=== PATIENT | female | born 1950 | race Caucasian/White ===

== ENCOUNTER 2019-01-02 11:30 | Emergency (ER) | payer MEDICARE ==
[~2019-01-02] VITALS: Ht 167.6 cm; Wt 73.0 kg
[~2019-01-02 11:30] MED LIST: ALPRAZOLAM0.25 MG PO; ASPIRIN LOW DOS81 M1 PO; ATENOLOL25 MG PO; BENEFIB10 PO; CARVEDILOL12.5 MG PO; CIPRO500 MG PO; CLARITHROMYC500 MG PO; COUMADIN5 MG PO; FIORICET PO; FLEXERIL10 MG PO; FLONASE NASAL50 MCG PO; LIPITOR80 MG PO; LORTAB 7.5 PO; LORTAB5 PO; MECLIZINE12.5 M1 PO; MECLIZINE12.5 MG PO; MEDDOSEPAK PO; MOBIC7.5 MG PO; NAPROSYN500 MG PO; NITRO-DUR0.2 MG/HR TD; PANTOPRAZOLE SO20 MG PO; PAROXETINE25 MG PO; PAXIL CR25 MG PO; PAXIL40 MG PO; PRILOSEC OTC20 MG; PRILOSEC OTC20 MG OR; PROTONIX20 M1 PO; PROTONIX40 M2 PO; PROTONIX40 MG PO; SERTRALINE50 MG PO; TENORMIN25 MG PO; ULTRACET PO; VASOTEC2.5 MG PO; WARFARIN5 MG PO; WARFARIN7.5 MG PO; XANAX0.25 MG PO; ZITHROMAX Z-PAK1 TAB PO
[2019-01-02 11:59] LABS: HEMATOCRIT 35.2 % (37.0-47.0); HEMOGLOBIN 11.4 g/dl (12.0-16.0); IMMATURE GRANULOCYTES 0.3 % (0.0-5.0); MEAN CELL VOLUME 91.4 fL CALC (80.0-100.0); MEAN CORPUSCULAR HGB 29.6 pG CALC (26.0-32.0); MEAN CORPUSCULAR HGB CONC 32.4 g/L CALC (32.0-36.0); NEUT# 3.19 thou/uL (2.00-7.15); RED BLOOD COUNT 3.85 mill/uL (4.20-5.60); RED CELL DISTRI WIDTH 12.9 % (11.5-15.5)
[2019-01-02 12:13] LABS: ALBUMIN 4.3 g/dL (3.2-5.0); ALKALINE PHOSPHATASE 65 u/l (38-126); AMYLASE 49 u/l (30-110); ANION GAP 14 (6-22 (CALC)); BUN 19 mg/dL (8-23); BUN/CREATININE RATIO 21 (12-20 (CALC)); CARBON DIOXIDE 24 mmol/l (22-30); CHLORIDE 106 mmol/l (95-108); CREATININE 0.9 mg/dL (0.5-1.0); GFR > 60 ML/MIN (>=60 (CALC)); GFR FOR AFR.AMER. > 60 ML/MIN (>=60 (CALC)); LIPASE 91 u/l (23-300); POTASSIUM 4.3 mmol/l (3.5-5.1); SODIUM 140 mmol/l (137-146); TOTAL PROTEIN 6.8 g/dL (6.3-8.2)
[2019-01-02 12:15] LABS: ACT PARTIAL THROMBO TIME 28.4 SECONDS (20.0-32.5); PROTHROMBIN TIME 10.6 SECONDS (9.0-12.5)
[2019-01-02 12:16] LABS: BILIRUBIN, TOTAL 0.6 mg/dL (0.0-1.4); SGOT/AST 38 u/l (9-36)
[2019-01-02 12:35] LABS: MYOGLOBIN 583 ng/mL (0 - 62)
[2019-01-02] MEDS ORDERED: ATORVASTATIN CA20 MG PO (13:49)
[2019-01-02] MEDS ORDERED: LOSARTAN POTASS50 MG PO (13:49)
[2019-01-02] MEDS ORDERED: METOPROL TAR25 MG PO (13:49)
[2019-01-02] MEDS ORDERED: CALCIUM 600 +600 MG PO (13:50)
[2019-01-02] MEDS ORDERED: MELOXICAM15 MG PO (13:50)
[2019-01-02 18:00] VITALS: BP 120/66
== END 2019-01-02 18:00 ==
LOC: ED 11:30
PROVIDERS: Family Medicine
DX: I21.9 Acute myocardial infarction, unspecified (principal); I25.2 Old myocardial infarction; I10 Essential (primary) hypertension; Z95.5 Presence of coronary angioplasty implant and graft; J44.9 Chronic obstructive pulmonary disease, unspecified
CPT/HCPCS: J1644

== ENCOUNTER 2019-07-13 16:08 | Emergency (ER) | payer MEDICARE ==
[~2019-07-13] VITALS: Ht 167.6 cm; Wt 80.0 kg
[~2019-07-13 16:08] MED LIST changes: +ATORVASTATIN CA20 MG PO; +CALCIUM 600 +600 MG PO; +LOSARTAN POTASS50 MG PO; +MELOXICAM15 MG PO; +METOPROL TAR25 MG PO
[2019-07-13] MEDS ORDERED: AMOXICILLIN875 MG PO (16:47)
[2019-07-13 17:00] VITALS: BP 141/80
== END 2019-07-13 17:00 | disposition home or self-care (01) ==
LOC: ED 16:08
PROC: 0HQGXZZ Repair Left Hand Skin, External Approach (ICD-10-PCS; principal; 2019-07-13)
DX: S61.251A Open bite of left index finger without damage to nail, initial encounter (principal); I10 Essential (primary) hypertension; J43.9 Emphysema, unspecified; W54.0XXA Bitten by dog, initial encounter; Y93.K3 Activity, grooming and shearing an animal; Y92.009 Unspecified place in unspecified non-institutional (private) residence as the place of occurrence of the external cause

== ENCOUNTER 2023-09-12 13:48 | Emergency (ER) | payer MEDICARE ==
[~2023-09-12] VITALS: Ht 165.1 cm; Wt 58.0 kg
[2023-09-12] VITALS (10 sets, daily range): BP systolic 132–195; BP diastolic 76–110
[~2023-09-12 13:48] MED LIST changes: +AMOXICILLIN875 MG PO
[2023-09-12 15:14] LABS: BASO% 0.6 % (0-3); EOS% 2.1 % (0-8); HEMOGLOBIN 12.1 g/dl (12.0-16.0); MEAN CELL VOLUME 89.2 fL CALC (80.0-100.0); MEAN CORPUSCULAR HGB 29.2 pG CALC (26.0-32.0); MEAN CORPUSCULAR HGB CONC 32.7 g/dL CAL (32.0-36.0); MONO% 7.8 % (2-13); NEUT# 2.63 thou/uL (2.00-7.15); NEUT% 55.5 % (42-76); RED BLOOD COUNT 4.15 mill/uL (4.20-5.60)
[2023-09-12] MEDS ORDERED: COREG6.25 MG PO (15:16)
[2023-09-12] MEDS ORDERED: ELAVIL25 M1 PO (15:16)
[2023-09-12] MEDS ORDERED: LISINOPRIL5 MG PO (15:17)
[2023-09-12 15:23] LABS: ALBUMIN 4.4 g/dL (3.2-5.0); ALKALINE PHOSPHATASE 60 u/l (38-126); BILIRUBIN, TOTAL 0.7 mg/dL (0.02-1.3); BUN 8 mg/dL (8-23); BUN/CREATININE RATIO 11 (12-20 (CALC)); CHLORIDE 104 mmol/l (95-108); CREATININE 0.7 mg/dL (0.5-1.0); GFR FOR AFR.AMER. > 60 ML/MIN (>=60 (CALC)); GFR OTHER RACES > 60 ML/MIN (>=60 (CALC)); SGOT/AST 32 u/l (9-36); SODIUM 143 mmol/l (137-146); TOTAL PROTEIN 7.2 g/dL (6.3-8.2)
[2023-09-12 15:26] LABS: ANION GAP 11 (6-22 (CALC)); CARBON DIOXIDE 31 mmol/l (22-30); POTASSIUM 3.4 mmol/l (3.5-5.1)
[2023-09-12 15:41] LABS: URINE BILIRUBIN - DIPSTICK Negative (NEGATIVE); URINE BLOOD DIPSTICK Negative (NEGATIVE); URINE COLOR Yellow; URINE GLUCOSE - DIPSTICK Negative (NEGATIVE); URINE KETONE Negative (NEGATIVE); URINE LEUK ESTERASE Trace (NEGATIVE); URINE NITRITE - DIPSTICK Negative (Negative); URINE PROTEIN - DIPSTICK Negative (NEG-TRACE)
[2023-09-12] MEDS ORDERED: amLODIPine BESYLATE 5 MG/TAB PO ONE (16:40)
== END 2023-09-12 19:01 | disposition home or self-care (01) ==
LOC: ED 13:48
PROVIDERS: Family Medicine
DX: R41.0 Disorientation, unspecified (principal); F03.90 Unspecified dementia, unspecified severity, without behavioral disturbance, psychotic disturbance, mood disturbance, and anxiety; I10 Essential (primary) hypertension; J43.9 Emphysema, unspecified; Z20.822 Contact with and (suspected) exposure to COVID-19

== ENCOUNTER 2023-10-04 11:58 | Emergency (ER) | payer MEDICARE ==
[~2023-10-04] VITALS: Ht 165.1 cm; Wt 58.4 kg
[2023-10-04] VITALS (17 sets, daily range): BP systolic 145–188; BP diastolic 77–112
[~2023-10-04 11:58] MED LIST changes: +COREG6.25 MG PO; +ELAVIL25 M1 PO; +LISINOPRIL5 MG PO
[2023-10-04] MEDS ORDERED: SODIUM CHLORIDE 0.9% 1,000 ML IV ONE (12:30)
[2023-10-04] MEDS ORDERED: ONDANSETRON HCl 4 MG/2 ML SDV IV ONE (12:30)
[2023-10-04 13:09] LABS: ALBUMIN 4.3 g/dL (3.2-5.0); ALKALINE PHOSPHATASE 68 u/l (38-126); BILIRUBIN, TOTAL 0.5 mg/dL (0.02-1.3); BUN 13 mg/dL (8-23); BUN/CREATININE RATIO 17 (12-20 (CALC)); CARBON DIOXIDE 27 mmol/l (22-30); CHLORIDE 107 mmol/l (95-108); CREATININE 0.8 mg/dL (0.5-1.0); GFR FOR AFR.AMER. > 60 ML/MIN (>=60 (CALC)); GFR OTHER RACES > 60 ML/MIN (>=60 (CALC)); LIPASE 68 u/l (23-300); SGOT/AST 29 u/l (9-36); SODIUM 138 mmol/l (137-146); TOTAL PROTEIN 6.7 g/dL (6.3-8.2)
[2023-10-04 13:10] LABS: ANION GAP 8 (6-22 (CALC)); POTASSIUM 4.2 mmol/l (3.5-5.1)
[2023-10-04 13:22] LABS: BASO% 0.6 % (0-3); EOS% 1.4 % (0-8); HEMATOCRIT 36.1 % (37.0-47.0); HEMOGLOBIN 11.8 g/dl (12.0-16.0); IMMATURE GRANULOCYTES 0.2 % (0.0-5.0); LYMPH% 19.6 % (15-41); MEAN CORPUSCULAR HGB 29.4 pG CALC (26.0-32.0); MEAN CORPUSCULAR HGB CONC 32.7 g/dL CAL (32.0-36.0); MONO% 5.7 % (2-13); NEUT# 4.67 thou/uL (2.00-7.15); NEUT% 72.5 % (42-76); RED BLOOD COUNT 4.01 mill/uL (4.20-5.60); RED CELL DISTRI WIDTH 13.1 % (11.5-15.5)
[2023-10-04 13:55] LABS: URINE BILIRUBIN - DIPSTICK Negative (NEGATIVE); URINE BLOOD DIPSTICK Negative (NEGATIVE); URINE GLUCOSE - DIPSTICK Negative (NEGATIVE); URINE KETONE Negative (NEGATIVE); URINE LEUK ESTERASE Negative (NEGATIVE); URINE NITRITE - DIPSTICK Negative (Negative); URINE PROTEIN - DIPSTICK Negative (NEG-TRACE); URINE UROBILINOGEN - DIPSTICK 0.2 E.U./dL (0.2)
[2023-10-04 13:56] LABS: URINE COLOR Yellow
[2023-10-04] MEDS ORDERED: METOCLOPRAMIDE HCL 10 MG/2 ML SDV IV ONE (14:00)
[2023-10-04] MEDS ORDERED: DiphenhydrAMINE HCL 50 MG/ML SDV IV ONE (14:00)
[2023-10-04] MEDS ORDERED: KETOROLAC TROMETHAMINE 15 MG/ML SDV IV ONE (14:00)
[2023-10-04] MEDS ORDERED: LABETALOL HCL 20 MG/ 4 ML CARTRG IV ONE (14:10)
== END 2023-10-04 15:20 | disposition home or self-care (01) ==
LOC: ED 11:58
PROVIDERS: Family Medicine
DX: R51.9 Headache, unspecified (principal); I10 Essential (primary) hypertension; I25.10 Atherosclerotic heart disease of native coronary artery without angina pectoris; K21.9 Gastro-esophageal reflux disease without esophagitis; J43.9 Emphysema, unspecified; F03.90 Unspecified dementia, unspecified severity, without behavioral disturbance, psychotic disturbance, mood disturbance, and anxiety; I25.2 Old myocardial infarction; Z95.5 Presence of coronary angioplasty implant and graft; Z20.822 Contact with and (suspected) exposure to COVID-19